=== PATIENT | male | born 1960 | race Caucasian/White ===

== ENCOUNTER 2016-07-30 13:53 | Inpatient (IN) | payer MEDICAID, MEDICARE ==
[2016-07-30 14:25] VITALS: BMI 25.1
--- NOTE | 2016-07-30 16:57 | RAD ---
PROCEDURE: Left Foot Radiographs. HISTORY: r/o osteo COMPARISON: Left foot radiographs performed 02/02/16 FINDINGS: BONES: Irregularity of the proximal 5th phalanx worrisome for acute fracture. The remainder the visualized osseous structures appear intact. JOINTS: No dislocation. SOFT TISSUES: Soft tissue swelling. No evidence of radiopaque foreign body. OTHER FINDINGS: None. IMPRESSION: Soft tissue swelling. Irregularity of the proximal 5th phalanx worrisome for acute fracture. This finding is new since prior study. Correlate with physical exam. Please note that MRI without and with IV contrast is most sensitive in detection of acute osteomyelitis.
--- NOTE | 2016-07-30 17:21 | RAD ---
PROCEDURE: Radiographs of the left tibia and fibula. HISTORY: r/o osteo COMPARISON: None available. TECHNIQUE: Frontal and lateral views obtained. FINDINGS: BONES: Mild fragmentation about the medial malleolus, presumed chronic ; suggest clinical correlation and dedicated cross-sectional imaging if indicated. The remainder the visualized osseous structures appear intact. JOINT SPACES: No dislocation. OTHER FINDINGS: Soft tissue swelling. No evidence of radiopaque foreign body. IMPRESSION: Soft tissue swelling. Mild fragmentation about the medial malleolus, presumed chronic ; suggest clinical correlation and dedicated cross-sectional imaging if indicated.
[2016-07-30 18:09] LABS: BASO # 0.1 K/uL (0.0-0.2); BASO % 1.3 % (0.0-2.0); EOS # 0.1 K/uL (0.0-0.7); EOS % 1.6 % (0.0-4.0); LYMPH # 1.9 K/uL (1.0-4.3); LYMPH % 20.7 % (20.0-40.0); MEAN CELL VOLUME 87.1 fL (80.0-94.0); MEAN CORPUSCULAR HEMOGLOBIN 27.7 pg (27.0-31.0); MEAN CORPUSCULAR HGB CONC 31.8 g/dL (33.0-37.0); MEAN PLATELET VOLUME 8.1 fL (7.2-11.7); MONO # 0.7 K/uL (0.0-0.8); MONO % 7.1 % (0.0-10.0); NRBC % 0.1 % (0.0-2.0); RED CELL DISTRIBUTION WIDTH 16.9 % (11.5-14.5); WHITE BLOOD COUNT 9.3 K/uL (4.8-10.8)
[2016-07-30 18:19] LABS: CHLORIDE 103 mmol/L (98-107); SODIUM 137 mmol/L (132-148)
--- NOTE | 2016-07-30 18:19 | C.PDOC ---
History Of Present Illness <Michelle Currie - Last Filed: 07/30/16 23:28> <Dar Villa DO - Last Filed: 08/02/16 07:41> 55 y/o male pmhx chronic venous ulcers secondary to diabetes complains of pain to left foot x1 week with left leg, arm and scrotal swelling. Pt denies trauma to foot. Denies chest pain, SOB, fever, cough, dysuria, hematuria or any other complaints. (Daisy FAIRDar) <Michelle Currie - Last Filed: 07/30/16 23:28> History Per: Patient History/Exam Limitations: no limitations Onset/Duration Of Symptoms: Days Current Symptoms Are (Timing): Still Present Severity: Moderate Location: Left lower extremity and scrotum Recent travel outside of the [place]: No <Dar Villa DO - Last Filed: 08/02/16 07:41> Chief Complaint (Nursing): Lower Extremity Problem/Injury Past Medical History Reviewed: Historical Data, Nursing Documentation, Vital Signs - Medical History PMH: Depression, Diabetes, HTN Family History: States: Unknown Family Hx - Social History Hx Tobacco Use: No Hx Alcohol Use: No Hx Substance Use: No - Immunization History Hx Tetanus Toxoid Vaccination: No Hx Influenza Vaccination: No Hx Pneumococcal Vaccination: No <Dra Villa DO - Last Filed: 08/02/16 07:41> Vital Signs: Last Vital Signs Temp 99 F 08/02/16 05:10 Pulse 91 H 08/02/16 05:10 Resp 18 08/02/16 05:10 BP 185/100 H 08/02/16 05:10 Pulse Ox 100 08/02/16 05:10 - [facility] Procedures AMPUTATION THROUGH FOOT (06/07/14) EXCIS DEBRIDE OF WOUND, INFECT, OR BURN (07/26/14) FLUOROSCOPY OF SUPERIOR VENA CAVA, GUIDANCE (02/02/16) FREE SKIN GRAFT NEC (07/26/14) INSERTION OF INFUSION DEV INTO SUP VENA CAVA, PERC APPROACH (02/02/16) LOC EXC LES METATAR/TAR (06/07/14) OTHER MYECTOMY (07/07/14) REMOVAL OF INFUSION DEV FROM GREAT VESSEL, SOFT WATER MECHANIC APPROACH (02/02/16) VENOUS CATHETERIZATION NEC (06/07/14) Review Of Systems Except As Marked, All Systems Reviewed And Found Negative. Constitutional: Negative for: Fever, Chills Cardiovascular: Negative for: Chest Pain Respiratory: Negative for: Cough, Shortness of Breath Genitourinary: Positive for: Scrotal Pain (and swelling). Negative for: Dysuria , Hematuria Musculoskeletal: Positive for: Other (left lower extremity pain and swelling) <Daisy FAIRDar La Filed: 08/02/16 07:41> Physical Exam - Physical Exam Appears: Non-toxic, No Acute Distress Skin: Warm, Dry, No Rash Head: Atraumatic, Normacephalic Chest: Symmetrical Cardiovascular: Rhythm Regular, No Murmur Respiratory: Normal Breath Sounds, No Rales, No Rhonchi, No Wheezing Gastrointestinal/Abdominal: Normal Exam, Soft, No Tenderness Male Genital: Scrotal Swelling (scrotal edema and swelling, nontender), Other ( no penile lesions) Extremity: Normal ROM, Capillary Refill (<2 seconds), Swelling (left upper extremity), Other (Left lower extremity edema, ulcer to anterior aspect, no discharge. Chronic changes to left foot with mild erythema and warmth. Right foot transmetatarsal amputation) Pulses: Left Dorsalis Pedis: Normal, Right Dorsalis Pedis: Normal Neurological/Psych: Oriented x3, Normal Speech <Daisy FARIDar La Filed: 08/02/16 07:41> ED Course And Treatment - Laboratory Results Result Diagrams: 07/30/16 18:05 07/30/16 18:05 ECG: Interpreted By Me, Viewed By Me Pulse Ox Interpretation: Normal - Radiology CXR: Interpreted by Me, Viewed By Me CXR Interpretation: Yes: Cardiomegaly, Other (picc in place, mild vasc congestion). No: Fracture, Pnemothorax <Michelle Currie - Last Filed: 07/30/16 23:28> - Laboratory Results Result Diagrams: 08/01/16 09:25 08/01/16 09:25 O2 Sat by Pulse Oximetry: 98 (room air) Pulse Ox Interpretation: Normal <Daisy FAIRDar La Filed: 08/02/16 07:41> Medical Decision Making <Michelle Currie - Last Filed: 07/30/16 23:28> <Daisy FAIRDar Last Filed: 08/02/16 07:41> Medical Decision Making: Plan: * labs * venous doppler LLE * XR left foot and tibia/fibula (Dar Villa DO) Disposition Discussed With Dr.: Rich Michael Comment: accepted the pt on his service and took over the care at 11;28pm Doctor Will See Patient In The: Hospital Counseled Patient/Family Regarding: Studies Performed, Diagnosis - Disposition Disposition Time: 19:00 - POA Present On Arrival: Poor Glycemic Control <Michelle Currie - Last Filed: 07/30/16 23:28> <Dar Villa DO - Last Filed: 08/02/16 07:41> - Disposition Disposition: HOSPITALIZED Condition: FAIR - Clinical Impression Clinical Impression: HTN (hypertension), Diabetic foot ulcer, Diabetes mellitus, Anasarca <Michelle Currie - Last Filed: 07/30/16 23:28> - Scribe Statement The provider has reviewed the documentation as recorded by the Scribe <Dar Villa DO - Last Filed: 08/02/16 07:41> - Scribe Statement Santo Lin (Dar Villa DO) Provider Attestation: All medical record entries made by the Scribe were at my direction and personally dictated by me. I have reviewed the chart and agree that the record accurately reflects my personal performance of the history, physical exam, medical decision making, and the department course for this patient. I have also personally directed, reviewed, and agree with the discharge instructions and disposition. (Dar Villa DO) Decision To Admit - Pt Status Changed To: Hospital Disposition Of: Inpatient - Admit Certification Admit to Inpatient:: After my assessment, the patient will require hospitalization for at least two midnights. This is because of the severity of symptoms shown, intensity of services needed, and/or the medical risk in this patient being treated as an outpatient. - InPatient: Physician Admission Certification: I certify that this patient requires 2 or more midnights of care for the following reason:: After my assessment, the patient will require hospitalization for at least two midnights. This is because of the severity of symptoms shown, intensity of services needed, and/or the medical risk in this patient being treated as an outpatient. - . Bed Request Type: Regular Admitting Physician: Rich Michael <Michelle Currie - Last Filed: 07/30/16 23:28> <Dar Villa DO - Last Filed: 08/02/16 07:41> - . Patient Diagnosis: HTN (hypertension), Diabetic foot ulcer, Diabetes mellitus, Anasarca
[2016-07-30 18:20] LABS: POTASSIUM 4.1 mmol/L (3.6-5.2)
[2016-07-30 18:22] LABS: ALB/GLOB RATIO 0.8 (1.0-2.1); ALKALINE PHOSPHATASE 94 U/L (38-126); ALT/SGPT 30 U/L (21-72); AST/SGOT 25 U/L (17-59); BILIRUBIN,TOTAL 0.4 mg/dL (0.2-1.3); BLOOD UREA NITROGEN 29 mg/dL (9-20); CALCIUM 8.2 mg/dl (8.6-10.4); CARBON DIOXIDE 30 mmol/L (22-30); GFR AFRICAN-AMERICAN > 60; GLUCOSE,RANDOM 254 mg/dL (75-110); TOTAL PROTEIN 5.5 g/dL (6.3-8.3)
[2016-07-30] MEDS ORDERED: Iohexol 350mg/ml 100 ML ONE (21:05)
--- NOTE | 2016-07-30 22:49 | CT ---
EXAM: CT Chest With Intravenous Contrast CLINICAL HISTORY: 55 years old, male; Condition or disease; Intestinal condition; Other: Edema; Other: Enlarge testicle; Additional info: Swelling/edema right side TECHNIQUE: Axial computed tomography images of the chest with intravenous contrast. This CT exam was performed using one or more of the following dose reduction techniques: automated exposure control, adjustment of the mA and/or kV according to patient size, and/or use of iterative reconstruction technique. Coronal and sagittal reformatted images were created and reviewed. CONTRAST: 100 mL of omnipaque 350 administered intravenously. COMPARISON: There are no prior studies for comparison. FINDINGS: Lungs: Trachea and main bronchi are patent.There are moderately large bilateral pleural effusions. There is compressive atelectasis bilaterally. There is patchy airspace disease at the lung bases. Pleural space: See above. Heart: unremarkable Mediastinum: Esophagus is not optimally evaluated. There is shotty mediastinal and hilar nodes. Thyroid: Thyroid is only partially imaged. Bones/joints: Bony structures are osteopenic.There are degenerative changes in the osseus structures. There are multiple old left rib fractures. There is a compression fracture at T10. There is a compression fracture at L2. Soft tissues: There is body wall edema Vasculature: The heart is mildly enlarged. There is a small pericardial effusion. There is no aneurysm or dissection. There are vascular calcifications. Pulmonary vessels are unremarkable. There is iatrogenic venous air. Lymph nodes: See above. Upper abdomen: Refer to the report for abdominal findings IMPRESSION: Moderately large bilateral pleural effusions with compressive atelectasis and minimal patchy airspace disease at the lung bases; mild cardiomegaly with small pericardial effusion; atherosclerotic disease; compression fractures T10 and L2; anasarca EXAM: CT Abdomen and Pelvis With Intravenous Contrast CLINICAL HISTORY: 55 years old, male; Condition or disease; Intestinal condition; Other: Edema; Other: Enlarge testicle; Additional info: Swelling/edema right side TECHNIQUE: Axial computed tomography images of the abdomen and pelvis with intravenous contrast. This CT exam was performed using one or more of the following dose reduction techniques: automated exposure control, adjustment of the mA and/or kV according to patient size, and/or use of iterative reconstruction technique. Coronal and sagittal reformatted images were created and reviewed. CONTRAST: 100 mL of omnipaque 350 administered intravenously. EXAM DATE/TIME: 07/30/2016 8:23 PM COMPARISON: There are no prior studies for comparison. FINDINGS: Lower thorax: Refer to prior report for chest findings ABDOMEN: Liver: There is fatty infiltration of the liver. The liver is mildly enlarged. Liver is heterogeneous. Gallbladder and bile ducts: Gallbladder is partially distended. There is pericholecystic fluid. Common bile duct is unremarkable. Pancreas: Pancreas is mildly atrophic. Spleen: unremarkable Adrenals: There is bilateral adrenal thickening left greater than right. Kidneys and ureters: Kidneys and ureters are unremarkable. Stomach and bowel: There is a small hiatal hernia. Stomach is partially distended. Rotation is normal. Small bowel is mildly distended. There is no obstruction. Terminal ileum is unremarkable. Appendix is unremarkable. Colon is incompletely distended which limits evaluation. There is a small fecal bolus in the rectum. Appendix: See stomach and bowel PELVIS: Bladder: Bladder is partially distended. Reproductive: Seminal vesicles and prostate are unremarkable. There are large bilateral hydroceles. ABDOMEN and PELVIS: Intraperitoneal space: There is no free air. Bones/joints: There are compression fractures at T10 and L2. There is mild compression deformity of T11 and T12. Soft tissues: There is body wall edema. Vasculature: There are vascular calcifications. Lymph nodes: There are shotty nodes in both groins. There is no pathologic adenopathy. IMPRESSION: Enlarged fatty liver, no acute solid visceral or bowel abnormality; large bilateral hydroceles; anasarca; compression fractures
[2016-07-31] MEDS ORDERED: Pneumococcal 23-Valent Vaccine IM ONE (04:23)
[2016-07-31] MEDS: (Novolin R) Insulin Human Regular 100 units/ml vial SC SCH ×4 (08:30→22:00)
[2016-07-31] MEDS ORDERED: (Novolog) Insulin Aspart, Recombinant 100 u/ml 10 ml vial SC SCH (10:00)
[2016-07-31] MEDS ORDERED: HYDROCHLOROTHIAZIDE PO SCH (10:00)
[2016-07-31] MEDS ORDERED: LISINOPRIL PO SCH (10:00)
[2016-07-31] MEDS: (Lantus) Insulin Glargine, Recombinant SC SCH (10:15)
--- NOTE | 2016-07-31 10:54 | CP.PCM.HP ---
History of Present Illness - History of Present Illness History of Present Illness: h/o leg blister and swelling, admitted with uncontrolled htn Present on Admission - Present on Admission Any Indicators Present on Admission: Yes Review of Systems - Cardiovascular Cardiovascular: Leg Edema - Genitourinary Additional comments: scrotal edema - Integumentary Integumentary: Sores Past Patient History - Infectious Disease Hx of Infectious Diseases: None - Tetanus Immunizations Tetanus Immunization: Unknown - Past Medical History & Family History Past Medical History?: Yes - Past Social History Smoking Status: Current Some Days Smoker - CARDIAC Hx Hypertension: Yes - PULMONARY Hx Respiratory Disorders: No - NEUROLOGICAL Hx Neurological Disorder: No - HEENT Hx HEENT Problems: No - RENAL Hx Chronic Kidney Disease: No - ENDOCRINE/METABOLIC Hx Endocrine Disorders: Yes Hx Diabetes Mellitus Type 2: Yes - HEMATOLOGICAL/ONCOLOGICAL Hx Blood Disorders: No - INTEGUMENTARY Hx Dermatological Problems: No Other/Comment: uLCERATION LATERAL ASPECT OF 5TH TOE - MUSCULOSKELETAL/RHEUMATOLOGICAL Hx Falls: No - GASTROINTESTINAL Hx Gastrointestinal Disorders: No - GENITOURINARY/GYNECOLOGICAL Hx Genitourinary Disorders: No - PSYCHIATRIC Hx Depression: Yes Hx Substance Use: No - SURGICAL HISTORY Hx Surgeries: Yes Hx Amputation: Yes (/TMA RIGHT FOOT) Hx Musculoskeletal Surgery: Yes (RIGHT KNEE A CHILD) Other/Comment: right knee surgery in 7th grade - ANESTHESIA Hx Anesthesia: Yes Hx Anesthesia Reactions: No Meds Allergies/Adverse Reactions: Allergies Allergy/AdvReac Type Severity Reaction Status Date / Time No Known Allergies Allergy Verified 07/30/16 14:23 Physical Exam - Constitutional Appears: Chronically Ill - Head Exam Head Exam: ATRAUMATIC, NORMOCEPHALIC - Eye Exam Eye Exam: Normal appearance - ENT Exam ENT Exam: Mucous Membranes Moist - Respiratory Exam Respiratory Exam: Decreased Breath Sounds - Cardiovascular Exam Cardiovascular Exam: +S1, +S2 - GI/Abdominal Exam GI & Abdominal Exam: Normal Bowel Sounds - Rectal Exam Rectal Exam: Deferred - Exam Exam: Scrotal Swelling - Extremities Exam Extremities exam: Positive for: pedal edema - Neurological Exam Neurological exam: Alert, Oriented x3 - Psychiatric Exam Psychiatric exam: Normal Affect, Normal Mood Results - Vital Signs Recent Vital Signs: Last Vital Signs Temp 98.3 F 07/31/16 07:30 Pulse 83 07/31/16 07:30 Resp 18 07/31/16 07:30 BP 151/81 H 07/31/16 10:17 Pulse Ox 99 07/31/16 07:30 - Labs Result Diagrams: 07/30/16 18:05 07/30/16 18:05 Labs: Laboratory Results - last 24 hr 07/31/16 06:46 POC Glucose (mg/dL) 344 H Assessment & Plan (1) Uncontrolled hypertension Status: Acute (2) Diabetes mellitus Status: Chronic (3) Scrotal edema Status: Acute (4) Edema Status: Acute
[2016-07-31] MEDS: Enoxaparin 40 mg Syringe SC SCH (12:03)
[2016-07-31] MEDS: (Novolog) Insulin Aspart, Recombinant 100 u/ml 10 ml vial SC SCH ×2 (12:22→17:37)
--- NOTE | 2016-07-31 12:33 | CP.PCM.PN ---
Subjective - Date & Time of Evaluation Date of Evaluation: 07/31/16 Time of Evaluation: 12:30 - Subjective Subjective: 55 year old male with scrotal and penile edema. Pt is diabetic and being treated for chf with dieuretics. A dependent edema suggests Elevate scrotum with towel,treat underlying causes of edema. [place] Objective - Vital Signs/Intake and Output Vital Signs (last 24 hours): Temp Pulse Resp BP Pulse Ox 98.3 F 83 18 151/81 H 99 07/31/16 07:30 07/31/16 07:30 07/31/16 07:30 07/31/16 10:17 07/31/16 07:30 - Medications Medications: Current Medications Amlodipine Besylate (Norvasc) 5 mg PO DAILY [facility] Last Admin: 07/31/16 10:17 Dose: Not Given Enoxaparin Sodium (Lovenox) 40 mg SC DAILY [facility] Last Admin: 07/31/16 12:03 Dose: 40 mg Furosemide (Lasix) 40 mg IVP Q12H [facility] Last Admin: 07/31/16 10:17 Dose: 40 mg Hydrochlorothiazide (Microzide) 12.5 mg PO DAILY [facility] Last Admin: 07/31/16 10:16 Dose: 12.5 mg Insulin Aspart (Novolog) 8 unit SC TIDAC [facility] Last Admin: 07/31/16 12:22 Dose: 8 unit Insulin Glargine (Lantus) 20 unit SC DAILY [facility] Last Admin: 07/31/16 10:15 Dose: 20 unit Insulin Human Regular (Novolin R) 0 unit SC [facility] PRN Reason: Protocol Last Admin: 07/31/16 12:23 Dose: 2 unit Lisinopril (Zestril) 10 mg PO DAILY [facility] Last Admin: 07/31/16 10:16 Dose: 10 mg
--- NOTE | 2016-07-31 14:49 | VASCLAB ---
PROCEDURE: Left Lower Extremity Venous Duplex Exam. HISTORY: DVT PRIORS: None. TECHNIQUE: Left common femoral, femoral, popliteal and posterior tibial, peroneal and great saphenous veins were evaluated. Flow was assessed with color Doppler, compressibility, assessment of phasic flow and augmentation response. Report prepared by VANITA Whitaker, RVT FINDINGS: LEFT: 1. Common Femoral Vein: 1.1. Compressibility - Fully compressible: Thrombus - None : Flow - Phasic: Augmentation -Normal: Reflux - None. 2. Femoral Vein: 2.1. Compressibility - Fully compressible: Thrombus - None: Flow - Phasic: Augmentation -Normal: Reflux - None. 3. Popliteal Vein: 3.1. Compressibility - Fully compressible: Thrombus - None: Flow - Phasic: Augmentation -Normal: Reflux - None. 4. Posterior Tibial Vein: 4.1. Compressibility - : Thrombus - : Flow - : Augmentation -: Reflux - . 5. Peroneal Vein: 5.1. Compressibility - : Thrombus - : Flow - : Augmentation -: Reflux - . 6. Great Saphenous Vein: 6.1. Compressibility - Fully compressible: Thrombus - None: Flow - Phasic: Augmentation - Normal: Reflux - Severe. OTHER FINDINGS: Due to swelling in the calf, the left peroneal and posterior tibial vein are not visualized. Severe valvular incompetence of the left greater saphenous vein. IMPRESSION: No evidence of deep or superficial vein thrombosis of the left lower extremity with excellent venous flow. Normal venous flow noted in the right common femoral vein.
--- NOTE | 2016-07-31 14:57 | US ---
HISTORY: scrotal swelling TECHNIQUE: Realtime sonography through the scrotum with color and doppler flow. COMPARISON: None Available. FINDINGS: RIGHT TESTICLE: Measures 4.2 x 2.9 x 2.8 cm. Homogeneous echotexture. Blood flow is demonstrated. RIGHT EPIDIDYMIS: Measures approximately 2.0 x 0.9 x 1.9 cm. LEFT TESTICLE: Measures 3.8 x 2.8 x 2.7 cm. Homogeneous echotexture. Blood flow is demonstrated. LEFT EPIDIDYMIS: Measures approximately 1.8 x 1.1 x 1.9 cm. HYDROCELE: Trace bilateral hydroceles. VARICOCELE: None. OTHER FINDINGS: Severe bilateral scrotal edema. IMPRESSION: Severe bilateral scrotal edema. Trace bilateral hydroceles.
--- NOTE | 2016-07-31 16:54 | CP.PCM.CON ---
History of Present Illness - History of Present Illness History of Present Illness: INFECTIOUS DISEASE CONSULTATION MARYLOU TERRAZAS MD, FACP 07/31/2016 6T 659-A CHART REVIEWED PT EXAMINED CASE DISCUSSED 55 YR OLD AAM PRESENT S WITH SCROTAL SWELLING X DAYS, CHRONIC HTN AND PENITENTIARY DM. BECAUSE OF THE EDEMA OF THE LEFT SIDE OF HIS EXTREMITIES HE DEVELOPED A BLISTER ON THE ANTERIOR TREVIZO OF HIS LEFT LEG. AN INFECTIOUS DISEASE CONSULTATION WAS REQUESTED FOR POSSIBLE AB MANAGEMENT. PMHX: DM WITH MICRO/MCRO ANGIOPATHIC CHANGES-NEWS ANALYST S/P RIGHT FOOT METAATARSAL AMPUTATION YRS AGO BY DR MARK BEVERLY. HTN UNDER THE CARE OF DR MAYDA Alejandro, AN OUTPATIENT. EDEMA UNDER THE CARE OF ATTENDINGS, UROLOGY ON THE CASE NO IV AB PRESENTLY ORDERED, TO OBVERSE AND MANAGE ACCORDINGLY. WOUND CARE MANAGEMENT UNDER WAY-PLEASE CALL ME IF NECESSARY. Review of Systems - Constitutional Constitutional: Fatigue - EENT Eyes: absent: As Per HPI, Blind Spots, Blurred Vision, Change in Vision, Decreased Night Vision, Diplopia, Discharge, Dry Eye, Exophthalmos, Floaters, Irritation, Itchy Eyes, Loss of Peripheral Vision, Pain, Photophobia, Requires Corrective Lenses, Sees Flashes, Spots in Vision, Tunnel Vision, Other Visual Disturbances, Loss of Vision, Other Nose/Mouth/Throat: absent: As Per HPI, Epistaxis, Nasal Congestion, Nasal Discharge, Nasal Obstruction, Nasal Trauma, Nose Pain, Post Nasal Drip, Sinus Pain, Sinus Pressure, Bleeding Gums, Change in Voice, Dental Pain, Dry Mouth, Dysphagia, Halitosis, Hoarsness, Lip Swelling, Mouth Lesions, Mouth Pain, Odynophagia, Sore Throat, Throat Swelling, Tongue Swelling, Facial Pain, Neck Pain, Neck Mass, Other - Cardiovascular Cardiovascular: Leg Edema, Leg Ulcers, Pedal Edema - Respiratory Respiratory: Chest Congestion - Gastrointestinal Gastrointestinal: absent: As Per HPI, Abdominal Pain, Belching, Bloating, Change in Bowel Habits, Change in Stool Character, Coffee Ground Emesis, Constipation, Cramping, Diarrhea, Dyspepsia, Dysphagia, Early Satiety, Excessive Flatus, Fecal Incontinence, Heartburn, Hematemesis, Hematochezia, Loose Stools, Melena, Nausea, Odynophagia, Temesmus, Vomiting, Other - Genitourinary Genitourinary: Change in Urinary Stream, Difficulty Urinating, Urinary Hesitance , Freq UTI - Musculoskeletal Musculoskeletal: Muscle Weakness - Integumentary Integumentary: New Lesions, Skin Pain - Neurological Neurological: Other - Psychiatric Psychiatric: Anxiety Past Patient History - Infectious Disease Hx of Infectious Diseases: None - Tetanus Immunizations Tetanus Immunization: Unknown - Past Medical History & Family History Past Medical History?: Yes - Past Social History Smoking Status: Current Some Days Smoker Alcohol: Occasional Domestic Violence: Negative - CARDIAC Hx Cardiac Disorders: Yes Hx Hypertension: Yes - PULMONARY Hx Respiratory Disorders: No - NEUROLOGICAL Hx Neurological Disorder: No - HEENT Hx HEENT Problems: No - RENAL Hx Chronic Kidney Disease: No - ENDOCRINE/METABOLIC Hx Endocrine Disorders: Yes Hx Diabetes Mellitus Type 2: Yes - HEMATOLOGICAL/ONCOLOGICAL Hx Blood Disorders: No - INTEGUMENTARY Hx Dermatological Problems: No Other/Comment: uLCERATION LATERAL ASPECT OF 5TH TOE - MUSCULOSKELETAL/RHEUMATOLOGICAL Hx Musculoskeletal Disorders: Yes Hx Falls: No Other/Comment: S/P TRANSMETATARSAL AMPUTATION RIGHT FOOT - GASTROINTESTINAL Hx Gastrointestinal Disorders: No - GENITOURINARY/GYNECOLOGICAL Hx Genitourinary Disorders: No Hx Urinary Tract Infection: Yes - PSYCHIATRIC Hx Psychophysiologic Disorder: Yes Hx Depression: Yes Hx Substance Use: No - SURGICAL HISTORY Hx Surgeries: Yes Hx Amputation: Yes (/TMA RIGHT FOOT) Hx Musculoskeletal Surgery: Yes (RIGHT KNEE A CHILD) Other/Comment: right knee surgery in 7th grade - ANESTHESIA Hx Anesthesia: Yes Hx Anesthesia Reactions: No Meds Allergies/Adverse Reactions: Allergies Allergy/AdvReac Type Severity Reaction Status Date / Time No Known Allergies Allergy Verified 07/30/16 14:23 - Medications Medications: Current Medications Amlodipine Besylate (Norvasc) 5 mg PO DAILY [facility] Last Admin: 07/31/16 10:17 Dose: Not Given Enoxaparin Sodium (Lovenox) 40 mg SC DAILY [facility] Last Admin: 07/31/16 12:03 Dose: 40 mg Furosemide (Lasix) 40 mg IVP Q12H [facility] Last Admin: 07/31/16 10:17 Dose: 40 mg Hydrochlorothiazide (Microzide) 12.5 mg PO DAILY [facility] Last Admin: 07/31/16 10:16 Dose: 12.5 mg Insulin Aspart (Novolog) 8 unit SC TIDAC [facility] Last Admin: 07/31/16 12:22 Dose: 8 unit Insulin Glargine (Lantus) 20 unit SC DAILY [facility] Last Admin: 07/31/16 10:15 Dose: 20 unit Insulin Human Regular (Novolin R) 0 unit SC ACHS [facility] PRN Reason: Protocol Last Admin: 07/31/16 12:23 Dose: 2 unit Lisinopril (Zestril) 10 mg PO DAILY [facility] Last Admin: 07/31/16 10:16 Dose: 10 mg Physical Exam - Constitutional Appears: Non-toxic - Head Exam Head Exam: NORMAL INSPECTION - Eye Exam Eye Exam: Normal appearance - ENT Exam ENT Exam: Mucous Membranes Moist - Respiratory Exam Respiratory Exam: Decreased Breath Sounds, NORMAL BREATHING PATTERN - Cardiovascular Exam Cardiovascular Exam: REGULAR RHYTHM - GI/Abdominal Exam GI & Abdominal Exam: Mass, Normal Bowel Sounds - Rectal Exam Rectal Exam: Deferred - Exam Exam: Scrotal Swelling - Back Exam Back exam: absent: muscle spasm, tenderness - Neurological Exam Neurological exam: Alert, Oriented x3 - Skin Skin Exam: Warm Results - Vital Signs Recent Vital Signs: Last Vital Signs Temp 97.9 F 07/31/16 15:43 Pulse 84 07/31/16 15:43 Resp 18 07/31/16 15:43 BP 152/88 H 07/31/16 15:43 Pulse Ox 97 07/31/16 15:43 - Labs Result Diagrams: 07/30/16 18:05 07/30/16 18:05 Labs: Laboratory Results - last 24 hr 07/31/16 07/31/16 06:46 11:47 POC Glucose (mg/dL) 344 H 180 H Assessment & Plan (1) Scrotal edema Status: Acute Priority: Medium (2) Uncontrolled hypertension Status: Chronic (3) Edema Status: Acute Priority: Medium Comment: LEFT EXTREMITIES, ESPECIALLY LEFT LEG. (4) Osteomyelitis of ankle or foot, acute Status: Resolved (5) PVD (peripheral vascular disease) Status: Chronic Priority: Medium (6) Uncontrolled diabetes mellitus Status: Chronic Priority: High
[2016-07-31 17:30] LABS: HEMATOCRIT 37.3 % (35.0-51.0); MEAN CELL VOLUME 86.5 fL (80.0-94.0); MEAN CORPUSCULAR HEMOGLOBIN 27.8 pg (27.0-31.0); MEAN CORPUSCULAR HGB CONC 32.1 g/dL (33.0-37.0); MEAN PLATELET VOLUME 7.7 fL (7.2-11.7); RED CELL DISTRIBUTION WIDTH 16.7 % (11.5-14.5); WHITE BLOOD COUNT 7.6 K/uL (4.8-10.8)
[2016-07-31 17:42] LABS: CHLORIDE 104 mmol/L (98-107)
[2016-07-31 17:43] LABS: POTASSIUM 3.2 mmol/L (3.6-5.2); SODIUM 136 mmol/L (132-148)
[2016-07-31 17:45] LABS: ALKALINE PHOSPHATASE 79 U/L (38-126); AST/SGOT 24 U/L (17-59); BILIRUBIN,TOTAL 0.4 mg/dL (0.2-1.3); BLOOD UREA NITROGEN 24 mg/dL (9-20); CARBON DIOXIDE 31 mmol/L (22-30); GFR AFRICAN-AMERICAN > 60; TOTAL PROTEIN 4.9 g/dL (6.3-8.3)
[2016-07-31 17:46] LABS: ALB/GLOB RATIO 0.8 (1.0-2.1); ALT/SGPT 23 U/L (21-72); CALCIUM 8.1 mg/dl (8.6-10.4); GLUCOSE,RANDOM 67 mg/dL (75-110)
--- NOTE | 2016-07-31 22:28 | CP.PCM.PN ---
Subjective - Date & Time of Evaluation Date of Evaluation: 07/31/16 Time of Evaluation: 16:05 Objective - Vital Signs/Intake and Output Vital Signs (last 24 hours): Temp Pulse Resp BP Pulse Ox 97.9 F 84 18 140/85 97 07/31/16 15:43 07/31/16 15:43 07/31/16 15:43 07/31/16 21:58 07/31/16 15:43 Intake and Output: 07/31/16 08/01/16 18:59 06:59 Intake Total 450 Output Total 600 Balance -150 - Medications Medications: Current Medications Amlodipine Besylate (Norvasc) 5 mg PO DAILY [facility] Last Admin: 07/31/16 10:17 Dose: Not Given Enoxaparin Sodium (Lovenox) 40 mg SC DAILY [facility] Last Admin: 07/31/16 12:03 Dose: 40 mg Furosemide (Lasix) 40 mg IVP Q12H [facility] Last Admin: 07/31/16 21:58 Dose: 40 mg Hydrochlorothiazide (Microzide) 12.5 mg PO DAILY [facility] Last Admin: 07/31/16 10:16 Dose: 12.5 mg Insulin Aspart (Novolog) 8 unit SC TIDAC [facility] Last Admin: 07/31/16 17:37 Dose: 8 unit Insulin Glargine (Lantus) 20 unit SC DAILY [facility] Last Admin: 07/31/16 10:15 Dose: 20 unit Insulin Human Regular (Novolin R) 0 unit SC ACHS [facility] PRN Reason: Protocol Last Admin: 07/31/16 22:00 Dose: Not Given Lisinopril (Zestril) 10 mg PO DAILY [facility] Last Admin: 07/31/16 10:16 Dose: 10 mg - Labs Labs: 07/31/16 17:21 07/31/16 17:21
[2016-08-01] MEDS: (Novolog) Insulin Aspart, Recombinant 100 u/ml 10 ml vial SC SCH ×2 (08:30→12:30)
[2016-08-01] MEDS: (Novolin R) Insulin Human Regular 100 units/ml vial SC SCH ×4 (08:37→23:22)
[2016-08-01 09:31] LABS: BASO # 0.1 K/uL (0.0-0.2); BASO % 1.4 % (0.0-2.0); EOS # 0.1 K/uL (0.0-0.7); EOS % 1.8 % (0.0-4.0); HEMATOCRIT 39.4 % (35.0-51.0); LYMPH # 1.6 K/uL (1.0-4.3); LYMPH % 20.5 % (20.0-40.0); MEAN CELL VOLUME 86.1 fL (80.0-94.0); MEAN CORPUSCULAR HEMOGLOBIN 28.1 pg (27.0-31.0); MEAN CORPUSCULAR HGB CONC 32.7 g/dL (33.0-37.0); MEAN PLATELET VOLUME 7.4 fL (7.2-11.7); MONO # 0.7 K/uL (0.0-0.8); MONO % 8.5 % (0.0-10.0); RED CELL DISTRIBUTION WIDTH 16.3 % (11.5-14.5)
[2016-08-01 09:48] LABS: CHLORIDE 98 mmol/L (98-107); POTASSIUM 3.2 mmol/L (3.6-5.2); SODIUM 134 mmol/L (132-148)
[2016-08-01 09:51] LABS: BLOOD UREA NITROGEN 24 mg/dL (9-20); CARBON DIOXIDE 30 mmol/L (22-30); GFR AFRICAN-AMERICAN > 60
[2016-08-01 09:52] LABS: GLUCOSE,RANDOM 152 mg/dL (75-110)
[2016-08-01] MEDS: (Lantus) Insulin Glargine, Recombinant SC SCH (10:20)
[2016-08-01] MEDS: Enoxaparin 40 mg Syringe SC SCH (10:21)
--- NOTE | 2016-08-01 12:34 | CP.PCM.PN ---
<Isma Perez - Last Filed: 08/01/16 12:31> Subjective - Date & Time of Evaluation Date of Evaluation: 08/01/16 Time of Evaluation: 12:31 - Subjective Subjective: Cardiology Progress Note for Dr. Stevenson Pt seen and examined at bedside. Pt states he would like more food this morning. Otherwise, pt has no complaints at this time. No acute events overnight. Denies CP, SOB, N/V/D. Objective - Vital Signs/Intake and Output Vital Signs (last 24 hours): Temp Pulse Resp BP Pulse Ox 99.4 F 88 18 164/104 H 98 08/01/16 07:45 08/01/16 11:35 08/01/16 07:45 08/01/16 10:20 08/01/16 11:35 Intake and Output: 08/01/16 08/01/16 06:59 18:59 Intake Total 215 Output Total 1000 Balance -785 - Medications Medications: Current Medications Amlodipine Besylate (Norvasc) 10 mg PO DAILY [facility] Last Admin: 08/01/16 10:21 Dose: Not Given Enoxaparin Sodium (Lovenox) 40 mg SC DAILY [facility] Last Admin: 08/01/16 10:21 Dose: 40 mg Furosemide (Lasix) 40 mg IVP Q12H [facility] Last Admin: 08/01/16 10:20 Dose: 40 mg Hydrochlorothiazide (Microzide) 12.5 mg PO DAILY [facility] Last Admin: 08/01/16 10:21 Dose: 12.5 mg Insulin Aspart (Novolog) 8 unit SC TIDAC [facility] Last Admin: 08/01/16 08:30 Dose: Not Given Insulin Glargine (Lantus) 20 unit SC DAILY [facility] Last Admin: 08/01/16 10:20 Dose: 20 unit Insulin Human Regular (Novolin R) 0 unit SC [facility] PRN Reason: Protocol Last Admin: 08/01/16 08:37 Dose: Not Given Lisinopril (Zestril) 10 mg PO DAILY [facility] Last Admin: 08/01/16 10:21 Dose: 10 mg - Labs Labs: 08/01/16 09:25 08/01/16 09:25 - Constitutional Appears: Well, No Acute Distress - Head Exam Head Exam: ATRAUMATIC, NORMAL INSPECTION, NORMOCEPHALIC - ENT Exam ENT Exam: Mucous Membranes Moist, Normal Exam - Respiratory Exam Respiratory Exam: Clear to Ausculation Bilateral, NORMAL BREATHING PATTERN. absent: Rhonchi - Cardiovascular Exam Cardiovascular Exam: RRR, +S1, +S2 - GI/Abdominal Exam GI & Abdominal Exam: Soft, Normal Bowel Sounds. absent: Tenderness - Extremities Exam Extremities Exam: absent: Calf Tenderness Additional comments: +2 pitting edema to knees b/l - Neurological Exam Neurological Exam: Alert, Awake, Oriented x3 - Psychiatric Exam Psychiatric exam: Normal Affect, Normal Mood - Skin Skin Exam: Intact, Normal Color, Warm Assessment and Plan (1) CHF (congestive heart failure) Assessment & Plan: Continue diuresis Continue lisinopril Will continue to monitor for worsening of cardiac function No surgical intervention at this time Status: Acute <Armida Stevenson - Last Filed: 08/01/16 21:16> Objective - Vital Signs/Intake and Output Vital Signs (last 24 hours): Temp Pulse Resp BP Pulse Ox 98.2 F 90 20 148/90 94 L 08/01/16 17:30 08/01/16 17:30 08/01/16 17:30 08/01/16 17:30 08/01/16 17:30 Intake and Output: 08/01/16 08/02/16 18:59 06:59 Intake Total 400 Output Total 800 Balance -400 - Medications Medications: Current Medications Amlodipine Besylate (Norvasc) 5 mg PO DAILY [facility] Enoxaparin Sodium (Lovenox) 40 mg SC DAILY [facility] Last Admin: 08/01/16 10:21 Dose: 40 mg Furosemide (Lasix) 40 mg IVP Q12H [facility] Last Admin: 08/01/16 10:20 Dose: 40 mg Hydralazine HCl (Apresoline) 50 mg PO Q8 [facility] Insulin Glargine (Lantus) 10 unit SC DAILY [facility] Insulin Human Regular (Novolin R) 0 unit SC ACHS [facility] PRN Reason: Protocol Last Admin: 08/01/16 17:23 Dose: Not Given Isosorbide Dinitrate (Isordil) 10 mg PO BID [facility] Potassium Chloride (K-Dur 20 Meq Er Tab) 20 meq PO DAILY [facility] Last Admin: 08/01/16 17:52 Dose: 20 meq - Labs Labs: 08/01/16 09:25 08/01/16 09:25 Attending/Attestation - Attestation I have personally seen and examined this patient.: Yes I have fully participated in the care of the patient.: Yes I have reviewed all pertinent clinical information, including history, physical exam and plan: Yes Notes (Text): 08/01/16 21:14 Continue BP control coming down nicely no Bidil in pharmacy will use hydralazine with imdur with amlodipine ef 52 percent pt non compliant with meds will stary coreg as well if poor control
--- NOTE | 2016-08-01 16:12 | CP.PCM.PN ---
Subjective - Date & Time of Evaluation Date of Evaluation: 08/01/16 Time of Evaluation: 16:04 - Subjective Subjective: pt. still with edema, echo results pending probnp elevated suggesting heart failure, which would be a new problem Objective - Vital Signs/Intake and Output Vital Signs (last 24 hours): Temp Pulse Resp BP Pulse Ox 99.4 F 88 18 164/104 H 98 08/01/16 07:45 08/01/16 11:35 08/01/16 07:45 08/01/16 10:20 08/01/16 11:35 Intake and Output: 08/01/16 08/01/16 06:59 18:59 Intake Total 215 Output Total 1000 Balance -785 - Medications Medications: Current Medications Amlodipine Besylate (Norvasc) 10 mg PO DAILY [facility] Last Admin: 08/01/16 10:21 Dose: Not Given Enoxaparin Sodium (Lovenox) 40 mg SC DAILY [facility] Last Admin: 08/01/16 10:21 Dose: 40 mg Furosemide (Lasix) 40 mg IVP Q12H [facility] Last Admin: 08/01/16 10:20 Dose: 40 mg Hydralazine HCl (Apresoline) 50 mg PO Q8 [facility] Hydrochlorothiazide (Microzide) 12.5 mg PO DAILY [facility] Last Admin: 08/01/16 10:21 Dose: 12.5 mg Insulin Aspart (Novolog) 8 unit SC TIDAC [facility] Last Admin: 08/01/16 12:30 Dose: 8 unit Insulin Glargine (Lantus) 20 unit SC DAILY [facility] Last Admin: 08/01/16 10:20 Dose: 20 unit Insulin Human Regular (Novolin R) 0 unit SC ACHS [facility] PRN Reason: Protocol Last Admin: 08/01/16 12:30 Dose: 3 unit Lisinopril (Zestril) 10 mg PO DAILY [facility] Last Admin: 08/01/16 10:21 Dose: 10 mg Potassium Chloride (K-Dur 20 Meq Er Tab) 20 meq PO DAILY [facility] - Labs Labs: 08/01/16 09:25 08/01/16 09:25 - Constitutional Appears: Chronically Ill - Head Exam Head Exam: ATRAUMATIC, NORMOCEPHALIC - Eye Exam Eye Exam: Normal appearance - ENT Exam ENT Exam: Mucous Membranes Moist - Respiratory Exam Respiratory Exam: Decreased Breath Sounds - Cardiovascular Exam Cardiovascular Exam: +S1, +S2 - GI/Abdominal Exam GI & Abdominal Exam: Normal Bowel Sounds - Rectal Exam Rectal Exam: Deferred - Extremities Exam Extremities Exam: Pedal Edema - Neurological Exam Neurological Exam: Alert, Awake - Psychiatric Exam Psychiatric exam: Normal Affect, Normal Mood - Skin Skin Exam: Intact Assessment and Plan (1) Uncontrolled hypertension Status: Chronic (2) Diabetes mellitus Status: Chronic (3) Scrotal edema Status: Acute (4) Edema Status: Acute
[2016-08-01] MEDS ORDERED: hydrALAZINE 12.5 mg Tab PO SCH (16:15)
[2016-08-01] MEDS ORDERED: Dextrose 50% SYRINGE Inj (50 ml) IV STA (17:10)
[2016-08-01] MEDS: Potassium Chloride 20 mEq ER Tab PO SCH (17:52)
--- NOTE | 2016-08-01 21:13 | CP.PCM.CON ---
Past Patient History - Infectious Disease Hx of Infectious Diseases: None - Tetanus Immunizations Tetanus Immunization: Unknown - Past Medical History & Family History Past Medical History?: Yes - Past Social History Smoking Status: Current Some Days Smoker Alcohol: Occasional Domestic Violence: Negative - CARDIAC Hx Hypertension: Yes - PULMONARY Hx Respiratory Disorders: No - NEUROLOGICAL Hx Neurological Disorder: No - HEENT Hx HEENT Problems: No - RENAL Hx Chronic Kidney Disease: No - ENDOCRINE/METABOLIC Hx Endocrine Disorders: Yes Hx Diabetes Mellitus Type 2: Yes - HEMATOLOGICAL/ONCOLOGICAL Hx Blood Disorders: No - INTEGUMENTARY Hx Dermatological Problems: No Other/Comment: uLCERATION LATERAL ASPECT OF 5TH TOE - MUSCULOSKELETAL/RHEUMATOLOGICAL Hx Musculoskeletal Disorders: Yes Hx Falls: No Other/Comment: S/P TRANSMETATARSAL AMPUTATION RIGHT FOOT - GASTROINTESTINAL Hx Gastrointestinal Disorders: No - GENITOURINARY/GYNECOLOGICAL Hx Genitourinary Disorders: No Hx Urinary Tract Infection: Yes - PSYCHIATRIC Hx Psychophysiologic Disorder: Yes Hx Depression: Yes Hx Substance Use: No - SURGICAL HISTORY Hx Surgeries: Yes Hx Amputation: Yes (/TMA RIGHT FOOT) Hx Musculoskeletal Surgery: Yes (RIGHT KNEE A CHILD) Other/Comment: right knee surgery in 7th grade - ANESTHESIA Hx Anesthesia: Yes Hx Anesthesia Reactions: No Meds Allergies/Adverse Reactions: Allergies Allergy/AdvReac Type Severity Reaction Status Date / Time No Known Allergies Allergy Verified 07/30/16 14:23 - Medications Medications: Current Medications Amlodipine Besylate (Norvasc) 5 mg PO DAILY [facility] Enoxaparin Sodium (Lovenox) 40 mg SC DAILY [facility] Last Admin: 08/01/16 10:21 Dose: 40 mg Furosemide (Lasix) 40 mg IVP Q12H [facility] Last Admin: 08/01/16 10:20 Dose: 40 mg Hydralazine HCl (Apresoline) 50 mg PO Q8 [facility] Insulin Glargine (Lantus) 10 unit SC DAILY [facility] Insulin Human Regular (Novolin R) 0 unit SC ACHS [facility] PRN Reason: Protocol Last Admin: 08/01/16 17:23 Dose: Not Given Isosorbide Dinitrate (Isordil) 10 mg PO BID [facility] Potassium Chloride (K-Dur 20 Meq Er Tab) 20 meq PO DAILY [facility] Last Admin: 08/01/16 17:52 Dose: 20 meq Results - Vital Signs Recent Vital Signs: Last Vital Signs Temp 98.2 F 08/01/16 17:30 Pulse 90 08/01/16 17:30 Resp 20 08/01/16 17:30 BP 148/90 08/01/16 17:30 Pulse Ox 94 L 08/01/16 17:30 - Labs Result Diagrams: 08/01/16 09:25 08/01/16 09:25 Labs: Laboratory Results - last 24 hr 07/31/16 08/01/16 08/01/16 20:56 06:40 09:25 WBC 8.0 RBC 4.58 Hgb 12.9 Hct 39.4 MCV 86.1 MCH 28.1 MCHC 32.7 L RDW 16.3 H Plt Count 250 MPV 7.4 Neut % (Auto) 67.8 Lymph % (Auto) 20.5 [place] % (Auto) 8.5 Eos % (Auto) 1.8 Baso % (Auto) 1.4 Neut # 5.4 Lymph # 1.6 [place] # 0.7 Eos # 0.1 Baso # 0.1 ESR 70 H Sodium Potassium Chloride Carbon Dioxide Anion Gap BUN Creatinine Est GFR ( Amer) Est GFR (Non-Af Amer) POC Glucose (mg/dL) 83 109 Random Glucose Calcium 08/01/16 08/01/16 08/01/16 09:25 11:46 16:32 WBC RBC Hgb Hct MCV MCH MCHC RDW Plt Count MPV Neut % (Auto) Lymph % (Auto) [place] % (Auto) Eos % (Auto) Baso % (Auto) Neut # Lymph # [place] # Eos # Baso # ESR Sodium 134 Potassium 3.2 L Chloride 98 Carbon Dioxide 30 Anion Gap 9 L BUN 24 H Creatinine 1.2 Est GFR ( Amer) > 60 Est GFR (Non-Af Amer) > 60 POC Glucose (mg/dL) 207 H 59 L Random Glucose 152 H Calcium 8.0 L 08/01/16 08/01/16 08/01/16 16:43 17:08 17:41 WBC RBC Hgb Hct MCV MCH MCHC RDW Plt Count MPV Neut % (Auto) Lymph % (Auto) [place] % (Auto) Eos % (Auto) Baso % (Auto) Neut # Lymph # [place] # Eos # Baso # ESR Sodium Potassium Chloride Carbon Dioxide Anion Gap BUN Creatinine Est GFR ( Amer) Est GFR (Non-Af Amer) POC Glucose (mg/dL) 57 L 63 L 209 H Random Glucose Calcium
[2016-08-02] MEDS: (Novolin R) Insulin Human Regular 100 units/ml vial SC SCH ×4 (08:19→22:11)
[2016-08-02] MEDS ORDERED: (Lantus) Insulin Glargine, Recombinant SC SCH ×3 (10:00→22:00)
[2016-08-02] MEDS: Enoxaparin 40 mg Syringe SC SCH (10:14)
[2016-08-02] MEDS: Potassium Chloride 20 mEq ER Tab PO SCH (10:15)
[2016-08-02 11:42] LABS: BASO % 0.3 % (0.0-2.0); EOS # 0.1 K/uL (0.0-0.7); EOS % 1.9 % (0.0-4.0); HEMATOCRIT 39.7 % (35.0-51.0); LYMPH # 1.5 K/uL (1.0-4.3); LYMPH % 20.1 % (20.0-40.0); MEAN CELL VOLUME 86.1 fL (80.0-94.0); MEAN CORPUSCULAR HEMOGLOBIN 27.9 pg (27.0-31.0); MEAN CORPUSCULAR HGB CONC 32.4 g/dL (33.0-37.0); MEAN PLATELET VOLUME 7.8 fL (7.2-11.7); MONO # 0.6 K/uL (0.0-0.8); MONO % 8.8 % (0.0-10.0); NRBC % 0.1 % (0.0-2.0); RED CELL DISTRIBUTION WIDTH 16.3 % (11.5-14.5); WHITE BLOOD COUNT 7.4 K/uL (4.8-10.8)
[2016-08-02 11:55] LABS: CHLORIDE 96 mmol/L (98-107); SODIUM 133 mmol/L (132-148)
[2016-08-02 11:56] LABS: POTASSIUM 3.3 mmol/L (3.6-5.2)
[2016-08-02 11:58] LABS: GFR AFRICAN-AMERICAN > 60
[2016-08-02 11:59] LABS: BLOOD UREA NITROGEN 23 mg/dL (9-20); CALCIUM 8.2 mg/dl (8.6-10.4); CARBON DIOXIDE 31 mmol/L (22-30); GLUCOSE,RANDOM 303 mg/dL (75-110); MAGNESIUM 1.6 mg/dL (1.6-2.3)
--- NOTE | 2016-08-02 12:05 | CP.PCM.CON ---
History of Present Illness - History of Present Illness History of Present Illness: 55 y/o male patient PMH of DM, HtN, Depression seen and evaluated at bedside with attending Dr. Chiu after request for podiatry consult. Patient was resting comfortably in bed and in NAD. AAOx3. Patient came in [facility] ED on for Left lower extremity pain and non-healing wound on the anterior aspect of LLE. Patient states that he has mild pain at wound site. LLE dressing was intact, clean and dry. Patient denies any symptoms of N/V/F/SOB/Chest pain. Past Patient History - Infectious Disease Hx of Infectious Diseases: None - Tetanus Immunizations Tetanus Immunization: Unknown - Past Medical History & Family History Past Medical History?: Yes - Past Social History Smoking Status: Current Some Days Smoker Alcohol: Occasional Domestic Violence: Negative - CARDIAC Hx Hypertension: Yes - PULMONARY Hx Respiratory Disorders: No - NEUROLOGICAL Hx Neurological Disorder: No - HEENT Hx HEENT Problems: No - RENAL Hx Chronic Kidney Disease: No - ENDOCRINE/METABOLIC Hx Endocrine Disorders: Yes Hx Diabetes Mellitus Type 2: Yes - HEMATOLOGICAL/ONCOLOGICAL Hx Blood Disorders: No - INTEGUMENTARY Hx Dermatological Problems: No Other/Comment: uLCERATION LATERAL ASPECT OF 5TH TOE - MUSCULOSKELETAL/RHEUMATOLOGICAL Hx Musculoskeletal Disorders: Yes Hx Falls: No Other/Comment: S/P TRANSMETATARSAL AMPUTATION RIGHT FOOT - GASTROINTESTINAL Hx Gastrointestinal Disorders: No - GENITOURINARY/GYNECOLOGICAL Hx Genitourinary Disorders: No Hx Urinary Tract Infection: Yes - PSYCHIATRIC Hx Depression: Yes Hx Substance Use: No - SURGICAL HISTORY Hx Surgeries: Yes Hx Amputation: Yes (/TMA RIGHT FOOT) Hx Musculoskeletal Surgery: Yes (RIGHT KNEE A CHILD) Other/Comment: right knee surgery in 7th grade - ANESTHESIA Hx Anesthesia: Yes Hx Anesthesia Reactions: No Meds Allergies/Adverse Reactions: Allergies Allergy/AdvReac Type Severity Reaction Status Date / Time No Known Allergies Allergy Verified 07/30/16 14:23 - Medications Medications: Current Medications Amlodipine Besylate (Norvasc) 5 mg PO DAILY [facility] Last Admin: 08/02/16 10:15 Dose: 5 mg Enoxaparin Sodium (Lovenox) 40 mg SC DAILY [facility] Last Admin: 08/02/16 10:14 Dose: 40 mg Furosemide (Lasix) 40 mg IVP Q12H [facility] Last Admin: 08/02/16 10:14 Dose: 40 mg Hydralazine HCl (Apresoline) 50 mg PO Q8 [facility] Last Admin: 08/02/16 05:17 Dose: 50 mg Insulin Glargine (Lantus) 10 unit SC DAILY [facility] Last Admin: 08/02/16 10:15 Dose: 10 unit Insulin Human Regular (Novolin R) 0 unit SC ACHS [facility] PRN Reason: Protocol Last Admin: 08/02/16 08:19 Dose: 4 unit Isosorbide Dinitrate (Isordil) 10 mg PO BID [facility] Last Admin: 08/02/16 10:15 Dose: 10 mg Potassium Chloride (K-Dur 20 Meq Er Tab) 20 meq PO DAILY [facility] Last Admin: 08/02/16 10:15 Dose: 20 meq Physical Exam - Constitutional Appears: Well, Non-toxic, No Acute Distress - Extremities Exam Additional comments: LLE focus exam Vascular: DP and PT palpable, CFT is less than 3 seconds, Pedal and LE edema noted, normal skin temp, Normal skin color Derm: Open wound noted to the anterior aspect of LLE ( 2.5 cm x 1.5 cm x 0.1cm) , wound base is mixture of fibrotic and granular, no signs of infection, no drainage, no tunneling, no sinus tract, no purulence, no erythema Ortho: mild tenderness at the wound site with palpation Neuro: diminished protective sensation and light touch - Neurological Exam Neurological exam: Alert, CN II-XII Intact, Oriented x3 - Psychiatric Exam Psychiatric exam: Normal Affect, Normal Mood Results - Vital Signs Recent Vital Signs: Last Vital Signs Temp 98.8 F 08/02/16 08:44 Pulse 97 H 08/02/16 08:44 Resp 20 08/02/16 08:44 BP 142/78 08/02/16 10:14 Pulse Ox 100 08/02/16 08:44 - Labs Result Diagrams: 08/02/16 11:27 08/02/16 11:27 Labs: Laboratory Results - last 24 hr 08/01/16 08/01/16 08/01/16 09:25 16:32 16:43 WBC RBC Hgb Hct MCV MCH MCHC RDW Plt Count MPV Neut % (Auto) Lymph % (Auto) [place] % (Auto) Eos % (Auto) Baso % (Auto) Neut # Lymph # [place] # Eos # Baso # ESR 70 H Sodium Potassium Chloride Creatinine Est GFR ( Amer) Est GFR (Non-Af Amer) POC Glucose (mg/dL) 59 L 57 L 08/01/16 08/01/16 08/01/16 17:08 17:41 21:37 WBC RBC Hgb Hct MCV MCH MCHC RDW Plt Count MPV Neut % (Auto) Lymph % (Auto) [place] % (Auto) Eos % (Auto) Baso % (Auto) Neut # Lymph # [place] # Eos # Baso # ESR Sodium Potassium Chloride Creatinine Est GFR ( Amer) Est GFR (Non-Af Amer) POC Glucose (mg/dL) 63 L 209 H 214 H 08/02/16 08/02/16 08/02/16 02:43 06:19 11:27 WBC 7.4 RBC 4.61 Hgb 12.9 Hct 39.7 MCV 86.1 MCH 27.9 MCHC 32.4 L RDW 16.3 H Plt Count 275 MPV 7.8 Neut % (Auto) 68.9 Lymph % (Auto) 20.1 [place] % (Auto) 8.8 Eos % (Auto) 1.9 Baso % (Auto) 0.3 Neut # 5.1 Lymph # 1.5 [place] # 0.6 Eos # 0.1 Baso # 0.0 ESR Sodium Potassium Chloride Creatinine Est GFR ( Amer) Est GFR (Non-Af Amer) POC Glucose (mg/dL) 196 H 281 H 08/02/16 08/02/16 11:27 11:56 WBC RBC Hgb Hct MCV MCH MCHC RDW Plt Count MPV Neut % (Auto) Lymph % (Auto) [place] % (Auto) Eos % (Auto) Baso % (Auto) Neut # Lymph # [place] # Eos # Baso # ESR Sodium 133 Potassium 3.3 L Chloride 96 L Creatinine 1.2 Est GFR ( Amer) > 60 Est GFR (Non-Af Amer) > 60 POC Glucose (mg/dL) 368 H Assessment & Plan - Assessment and Plan (Free Text) Assessment: 55 y/o male patient with LLE open wound secondary to vesnou stasis/DM Plan: Patient seen and evaluated at bedside with Dr. Chiu All the questions and concerns were addressed LLE dressing was applied with Xeroform and DSD Pt will have Venous duplex exam Patient will be discharge home if Duplex exam came back with Negative Patient is stable to be discharge home from podiatry stand point Patient will f/u with Dr. Chiu upon D/C
--- NOTE | 2016-08-02 15:16 | VASCLAB ---
PROCEDURE: Lower Extremity Venous Duplex Exam. HISTORY: Bilateral lower extremity swelling PRIORS: None. TECHNIQUE: Bilateral common femoral, femoral, popliteal and posterior tibial, peroneal and great saphenous veins were evaluated. Flow was assessed with color Doppler, compressibility, assessment of phasic flow and augmentation response. Report prepared by Julio Cesar Cash, VANITA, RVT FINDINGS: RIGHT: 1. Common Femoral Vein: 1.1. Compressibility - Fully compressible: Thrombus - None : Flow - Phasic: Augmentation -Normal: Reflux - None. 2. Femoral Vein: 2.1. Compressibility - Fully compressible: Thrombus - None : Flow - Phasic: Augmentation -Normal: Reflux - None. 3. Popliteal Vein: 3.1. Compressibility - Fully compressible: Thrombus - None : Flow - Phasic: Augmentation -Normal: Reflux - None. 4. Posterior Tibial Vein: 4.1. Compressibility - Fully compressible: Thrombus - None: Flow - Phasic: Augmentation -Normal: Reflux - None. 5. Peroneal Vein: 5.1. Compressibility - Fully compressible: Thrombus - None: Flow - Phasic: Augmentation -Normal: Reflux - None. 6. Great Saphenous Vein: 6.1. Compressibility - Fully compressible: Thrombus - None: Flow - Phasic: Augmentation - Normal: Reflux - None. LEFT: 1. Common Femoral Vein: 1.1. Compressibility - Fully compressible: Thrombus - None: Flow - Phasic: Augmentation -Normal: Reflux - None. 2. Femoral Vein: 2.1. Compressibility - Fully compressible: Thrombus - None: Flow - Phasic: Augmentation -Normal: Reflux - None. 3. Popliteal Vein: 3.1. Compressibility - Fully compressible: Thrombus - None : Flow - Phasic: Augmentation -Normal: Reflux - None. 4. Posterior Tibial Vein: 4.1. Compressibility - Fully compressible: Thrombus - None: Flow - Phasic: Augmentation -Normal: Reflux - None. 5. Peroneal Vein: 5.1. Compressibility - Fully compressible: Thrombus - None: Flow - Phasic: Augmentation -Normal: Reflux - None. 6. Great Saphenous Vein: 6.1. Compressibility - Fully compressible: Thrombus - None: Flow - Phasic: Augmentation - Normal: Reflux - Severe. OTHER FINDINGS: Right: None significant. Left: Severe valvular incompetence of the left greater saphenous vein. IMPRESSION: Right: No evidence of deep or superficial vein thrombosis of the right lower extremity. Normal valve function noted of the right side. Left: No evidence of deep or superficial vein thrombosis of the left lower extremity.
--- NOTE | 2016-08-02 19:17 | CP.PCM.PN ---
Subjective - Date & Time of Evaluation Date of Evaluation: 08/02/16 Time of Evaluation: 19:12 - Subjective Subjective: pt seen with mild, improvement in swelling echo results still pending will try to switch to po meds in am and observe for stability Objective - Vital Signs/Intake and Output Vital Signs (last 24 hours): Temp Pulse Resp BP Pulse Ox 98.2 F 98 H 20 154/89 H 95 08/02/16 16:00 08/02/16 16:00 08/02/16 16:00 08/02/16 16:00 08/02/16 16:00 Intake and Output: 08/02/16 08/03/16 18:59 06:59 Intake Total 600 Balance 600 - Medications Medications: Current Medications Amlodipine Besylate (Norvasc) 5 mg PO DAILY [facility] Last Admin: 08/02/16 10:15 Dose: 5 mg Carvedilol (Coreg) 12.5 mg PO BID [facility] Enoxaparin Sodium (Lovenox) 40 mg SC DAILY [facility] Last Admin: 08/02/16 10:14 Dose: 40 mg Furosemide (Lasix) 40 mg IVP Q12H [facility] Last Admin: 08/02/16 10:14 Dose: 40 mg Hydralazine HCl (Apresoline) 50 mg PO Q8 [facility] Last Admin: 08/02/16 13:22 Dose: 50 mg Insulin Glargine (Lantus) 10 unit SC DAILY [facility] Last Admin: 08/02/16 10:15 Dose: 10 unit Insulin Human Regular (Novolin R) 0 unit SC ACHS [facility] PRN Reason: Protocol Last Admin: 08/02/16 17:30 Dose: 4 unit Isosorbide Dinitrate (Isordil) 10 mg PO BID [facility] Last Admin: 08/02/16 17:49 Dose: 10 mg Potassium Chloride (K-Dur 20 Meq Er Tab) 20 meq PO DAILY [facility] Last Admin: 08/02/16 10:15 Dose: 20 meq Spironolactone (Aldactone) 50 mg PO DAILY [facility] - Labs Labs: 08/02/16 11:27 08/02/16 11:27 - Constitutional Appears: Chronically Ill - Head Exam Head Exam: ATRAUMATIC, NORMOCEPHALIC - Eye Exam Eye Exam: Normal appearance - ENT Exam ENT Exam: Mucous Membranes Moist - Respiratory Exam Respiratory Exam: Decreased Breath Sounds - Cardiovascular Exam Cardiovascular Exam: +S1, +S2 - GI/Abdominal Exam GI & Abdominal Exam: Normal Bowel Sounds - Rectal Exam Rectal Exam: Deferred - Exam Exam: Scrotal Swelling - Extremities Exam Extremities Exam: Pedal Edema - Neurological Exam Neurological Exam: Alert, Awake - Psychiatric Exam Psychiatric exam: Normal Affect, Normal Mood - Skin Skin Exam: Intact Assessment and Plan (1) Uncontrolled hypertension Status: Chronic (2) Diabetes mellitus Status: Chronic (3) Scrotal edema Status: Acute (4) Edema Status: Acute (5) 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
--- NOTE | 2016-08-02 21:53 | CARD ---
APPROVED REPORT EXAM: Two-dimensional and M-mode echocardiogram with Doppler and color Doppler. Other Information Quality : GoodRhythm : NSR INDICATION Dyspnea RISK FACTORS Hypertension Diabetes M-Mode DIMENSIONS RVDd2.54 (2.1-3.2cm)Left Atrium (MM)3.75 (2.5-4.0cm) IVSd1.80 (0.7-1.1cm)Aortic Root3.12 (2.2-3.7cm) LVDd4.80 (4.0-5.6cm)Aortic Cusp Exc.2.11 (1.5-2.0cm) PWd1.76 (0.7-1.1cm)FS (%) 27 % LVDs3.51 (2.0-3.8cm)LVEF (%)52 (>50%) Aortic Valve AoV Peak Cqnvstfn249.9cm/Agnes Peak GR.7mmHg Mitral Valve MV E Yzrvjfxv18.0cm/sMV A Dpratkur93.1cm/sE/A ratio1.2 TDI E/Lateral E'0.0E/Medial E'0.0 Tricuspid Valve TR Peak Zkopsrdq973er/sTR Peak Gr.[id number] LEFT VENTRICLE The left ventricle is normal size. There is mild concentric left ventricular hypertrophy. Left ventricle systolic function is normal. The Ejection Fraction is 50-55%. There is normal LV segmental wall motion. The left ventricular diastolic function is normal. RIGHT VENTRICLE The right ventricle is normal size. There is normal right ventricular wall thickness. The right ventricular systolic function is normal. ATRIA The left atrium size is normal. The right atrium size is normal. The interatrial septum is intact with no evidence for an atrial septal defect. AORTIC VALVE The aortic valve is normal in structure. No aortic regurgitation is present. There is no aortic valvular stenosis. MITRAL VALVE The mitral valve is normal in structure. There is no evidence of mitral valve prolapse. There is no mitral valve stenosis. Mitral regurgitation is trace. TRICUSPID VALVE The tricuspid valve is normal in structure. There is mild tricuspid regurgitation. Right ventricular systolic pressure is estimated at 30-40 mmHg. There is mild pulmonary hypertension. PULMONIC VALVE The pulmonic valve is not well visualized. There is mild pulmonic valvular regurgitation. GREAT VESSELS The aortic root is normal in size. PERICARDIAL EFFUSION There is a small loculated posterior pericardial effusion. <Conclusion> Left ventricle systolic function is normal. The Ejection Fraction is 50-55%. Hypertensive heart disease. No aortic regurgitation is present. Mitral regurgitation is trace. There is mild tricuspid regurgitation. There is mild pulmonary hypertension. There is mild pulmonic valvular regurgitation.
[2016-08-03] MEDS: (Novolin R) Insulin Human Regular 100 units/ml vial SC SCH ×3 (08:19→17:28)
[2016-08-03 08:22] LABS: BASO # 0.1 K/uL (0.0-0.2); BASO % 0.9 % (0.0-2.0); EOS # 0.2 K/uL (0.0-0.7); HEMATOCRIT 36.7 % (35.0-51.0); LYMPH # 1.8 K/uL (1.0-4.3); LYMPH % 23.3 % (20.0-40.0); MEAN CELL VOLUME 87.1 fL (80.0-94.0); MEAN CORPUSCULAR HGB CONC 32.1 g/dL (33.0-37.0); MEAN PLATELET VOLUME 7.7 fL (7.2-11.7); MONO # 0.6 K/uL (0.0-0.8); MONO % 8.2 % (0.0-10.0); NRBC % 0.1 % (0.0-2.0); RED CELL DISTRIBUTION WIDTH 16.1 % (11.5-14.5); WHITE BLOOD COUNT 7.9 K/uL (4.8-10.8)
[2016-08-03 08:28] VITALS: PULSE 78
[2016-08-03] MEDS: Potassium Chloride 20 mEq ER Tab PO SCH (10:03)
[2016-08-03] MEDS: Enoxaparin 40 mg Syringe SC SCH (10:03)
[2016-08-03 10:13] LABS: CHLORIDE 103 mmol/L (98-107); POTASSIUM 3.7 mmol/L (3.6-5.2); SODIUM 135 mmol/L (132-148)
[2016-08-03 10:16] LABS: BLOOD UREA NITROGEN 25 mg/dL (9-20); CARBON DIOXIDE 29 mmol/L (22-30); GFR AFRICAN-AMERICAN > 60; GLUCOSE,RANDOM 144 mg/dL (75-110)
[2016-08-03 10:17] LABS: CALCIUM 8.1 mg/dl (8.6-10.4)
--- NOTE | 2016-08-03 13:08 | CP.PCM.PN ---
Subjective - Date & Time of Evaluation Date of Evaluation: 08/03/16 Time of Evaluation: 12:30 - Subjective Subjective: Pt seen and examined today, states feels better , denies any chest pain, sob , dizziness, palpitations oob ambulates with physical therapy seen by manager hair and cleared for discharge home Objective - Vital Signs/Intake and Output Vital Signs (last 24 hours): Temp Pulse Resp BP Pulse Ox 98.4 F 78 17 140/84 97 08/03/16 07:10 08/03/16 07:10 08/03/16 07:10 08/03/16 10:03 08/03/16 07:10 Intake and Output: 08/03/16 08/03/16 06:59 18:59 Intake Total 200 Output Total 200 Balance 0 - Medications Medications: Current Medications Amlodipine Besylate (Norvasc) 5 mg PO DAILY [facility] Last Admin: 08/03/16 10:02 Dose: 5 mg Carvedilol (Coreg) 12.5 mg PO BID [facility] Last Admin: 08/03/16 10:03 Dose: 12.5 mg Enoxaparin Sodium (Lovenox) 40 mg SC DAILY [facility] Last Admin: 08/03/16 10:03 Dose: 40 mg Furosemide (Lasix) 40 mg IVP Q12H [facility] Last Admin: 08/03/16 10:07 Dose: Not Given Hydralazine HCl (Apresoline) 50 mg PO Q8 [facility] Last Admin: 08/03/16 06:52 Dose: 50 mg Insulin Glargine (Lantus) 15 unit SC HS [facility] Last Admin: 08/02/16 22:11 Dose: 15 units Insulin Human Regular (Novolin R) 0 unit SC [facility] PRN Reason: Protocol Last Admin: 08/03/16 12:30 Dose: 4 unit Isosorbide Dinitrate (Isordil) 10 mg PO BID [facility] Last Admin: 08/03/16 10:02 Dose: 10 mg Potassium Chloride (K-Dur 20 Meq Er Tab) 20 meq PO DAILY [facility] Last Admin: 08/03/16 10:03 Dose: 20 meq Spironolactone (Aldactone) 50 mg PO DAILY [facility] Last Admin: 08/03/16 10:02 Dose: 50 mg - Labs Labs: 08/03/16 07:57 08/03/16 07:57 Assessment and Plan - Assessment and Plan (Free Text) Assessment: 55 yr old male admitted for pain to left foot x1 week with left leg, arm and scrotal swelling./HTN/anasarca venous duplex- negative echo- Normal LV function , EF 50-55% seen by manager hair , cleared for discharge home from podiatry stand point D/W Dr. Locke , stable for discharge home today and f/u with and Dr. Lyon office in 1 week Discharge plan discussed with patient who understands and agrees with plan ALL RX OBTAINED AND GIVEN TO THE PATIENT Pt instructed to returns to ED if symptoms returns
--- NOTE | 2016-08-03 16:41 | PCM.HF ---
Heart Failure Core Measure - Heart Failure Ejection Fraction: 40 % or Greater MEDARDO Inhibitor Prescribed: Yes Beta-David Prescribed: Carvedilol Angiotensin II Receptor David Prescribed: No Contraindication/Reason for not providing: on medardo AnticoagulationTherapy for Atrial Fibrillation/Atrialflutter: No Contraindication/Reason for not providing: no hx of chf Aldosterone Antagonist Prescribed: Yes Hydralazine Nitrate Prescribed: Yes Implantable Cardioverter Defibrillator Therapy: No Contraindication/Reason for not providing: ef>50 Cardiac Resynchronization Therapy Prescribed: No Contraindication/Reason for not providing: ef>45 - Follow up Will be discharged to: Home Follow Up Date (must be within 7 days from discharge): 08/08/16 Follow Up Time: 09:00
[2016-08-03 17:16] VITALS: BP 125/62; RESP 20; TEMP 98.9; O2SAT 99
--- NOTE | 2016-08-03 17:54 | CP.PCM.PN ---
Subjective - Date & Time of Evaluation Date of Evaluation: 08/03/16 Time of Evaluation: 08:05 Objective - Vital Signs/Intake and Output Vital Signs (last 24 hours): Temp Pulse Resp BP Pulse Ox 98.9 F 78 20 125/62 99 08/03/16 15:30 08/03/16 15:30 08/03/16 15:30 08/03/16 15:30 08/03/16 15:30 Intake and Output: 08/03/16 08/03/16 06:59 18:59 Intake Total 200 400 Output Total 200 Balance 0 400 - Medications Medications: Current Medications Amlodipine Besylate (Norvasc) 5 mg PO DAILY [facility] Last Admin: 08/03/16 10:02 Dose: 5 mg Carvedilol (Coreg) 12.5 mg PO BID [facility] Last Admin: 08/03/16 10:03 Dose: 12.5 mg Enoxaparin Sodium (Lovenox) 40 mg SC DAILY [facility] Last Admin: 08/03/16 10:03 Dose: 40 mg Furosemide (Lasix) 40 mg IVP Q12H [facility] Last Admin: 08/03/16 10:07 Dose: Not Given Hydralazine HCl (Apresoline) 50 mg PO Q8 [facility] Last Admin: 08/03/16 14:29 Dose: 50 mg Insulin Glargine (Lantus) 15 unit SC HS [facility] Last Admin: 08/02/16 22:11 Dose: 15 units Insulin Human Regular (Novolin R) 0 unit SC ACHS [facility] PRN Reason: Protocol Last Admin: 08/03/16 17:28 Dose: 8 unit Isosorbide Dinitrate (Isordil) 10 mg PO BID [facility] Last Admin: 08/03/16 10:02 Dose: 10 mg Potassium Chloride (K-Dur 20 Meq Er Tab) 20 meq PO DAILY [facility] Last Admin: 08/03/16 10:03 Dose: 20 meq Spironolactone (Aldactone) 50 mg PO DAILY [facility] Last Admin: 08/03/16 10:02 Dose: 50 mg - Labs Labs: 08/03/16 07:57 08/03/16 07:57
--- NOTE | 2016-08-04 18:32 | CON ---
DATE: 07/31/2016 TIME: Approximately 12:30 p.m. CHIEF COMPLAINT: Scrotal and penile swelling. HISTORY OF PRESENT ILLNESS: The patient was admitted with congestive heart failure. He is a known d iabetic with having had multiple amputations due to peripheral vascular disease. He has noted signif icant scrotal and penile swelling for the last several days. Denies any history of trauma or venerea l diseases. REVIEW OF SYSTEMS: RESPIRATORY: The patient is not complaining of shortness of breath. CARDIAC: The patient has a history of peripheral edema, as well as scrotal edema. GASTROINTESTINAL: The patient has no change in bowel complaints. GENITOURINARY: The patient is having no difficulty in voiding. He is noting scrotal and penile chase a. He is uncircumcised, but is not having any difficulty in voiding. SOCIAL AND FAMILY HISTORY: The patient is a nonsmoker and does not drink. PHYSICAL EXAMINATION: VITAL SIGNS: Within normal limits. HEENT: Within normal limits. NECK: Supple. There are no bruits, nodes, or masses. CHEST: Clear bilaterally. There are no rales or rhonchi. There is some basilar decrease in breath sounds. HEART: Normal sinus rhythm. There is no cardiomegaly. There is no murmur. ABDOMEN: Soft, nontender. There are no masses or organomegaly, no inguinal hernias. GENITOURINARY: Scrotum: There is significant peripheral edema in the scrotal wall and in the penis and foreskin consistent with congestive heart failure. EXTREMITIES: The patient has a right partial foot amputation. He has some peripheral edema. IMPRESSION: Scrotal and penile edema secondary to generalized edema, congestive failure. SUGGEST: I suggest elevating the scrotum and penis with a towel at all times. Treatment of the gene ral underlying cause of the peripheral edema should improve his scrotal edema as well. No further th erapy at this time. Curtis Major MD cc: [id number] TT: 08/04/2016 18:31:58 Confirmation # [id number] Dictation # [id number] mn
--- NOTE | 2016-08-11 11:48 | CP.PCM.DIS ---
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 Hospital Course - Lab Results Lab Results: Most Recent Lab Values WBC 7.9 K/uL (4.8-10.8) 08/03/16 07:57 RBC 4.21 Mil/uL (4.40-5.90) L 08/03/16 07:57 Hgb 11.8 g/dL (12.0-18.0) L 08/03/16 07:57 Hct 36.7 % (35.0-51.0) 08/03/16 07:57 MCV 87.1 fL (80.0-94.0) 08/03/16 07:57 MCH 28.0 pg (27.0-31.0) 08/03/16 07:57 MCHC 32.1 g/dL (33.0-37.0) L 08/03/16 07:57 RDW 16.1 % (11.5-14.5) H 08/03/16 07:57 Plt Count 224 K/uL (130-400) 08/03/16 07:57 MPV 7.7 fL (7.2-11.7) 08/03/16 07:57 Neut % (Auto) 65.6 % (50.0-75.0) 08/03/16 07:57 Lymph % (Auto) 23.3 % (20.0-40.0) 08/03/16 07:57 [place] % (Auto) 8.2 % (0.0-10.0) 08/03/16 07:57 Eos % (Auto) 2.0 % (0.0-4.0) 08/03/16 07:57 Baso % (Auto) 0.9 % (0.0-2.0) 08/03/16 07:57 Neut # 5.2 K/uL (1.8-7.0) 08/03/16 07:57 Lymph # 1.8 K/uL (1.0-4.3) 08/03/16 07:57 Montgomery # 0.6 K/uL (0.0-0.8) 08/03/16 07:57 Eos # 0.2 K/uL (0.0-0.7) 08/03/16 07:57 Baso # 0.1 K/uL (0.0-0.2) 08/03/16 07:57 ESR 70 mm/hr (0-15) H 08/01/16 09:25 Sodium 135 mmol/L (132-148) 08/03/16 07:57 Potassium 3.7 mmol/L (3.6-5.2) 08/03/16 07:57 Chloride 103 mmol/L (98-107) 08/03/16 07:57 Carbon Dioxide 29 mmol/L (22-30) 08/03/16 07:57 Anion Gap 7 (10-20) L 08/03/16 07:57 BUN 25 mg/dL (9-20) H 08/03/16 07:57 Creatinine 1.3 MG/DL (0.8-1.5) 08/03/16 07:57 Est GFR ( Amer) > 60 08/03/16 07:57 Est GFR (Non-Af Amer) 57 08/03/16 07:57 POC Glucose (mg/dL) 362 mg/dL (65-110) H 08/03/16 16:48 Random Glucose 144 mg/dL (75-110) H 08/03/16 07:57 Calcium 8.1 mg/dl (8.6-10.4) L 08/03/16 07:57 Magnesium 1.6 mg/dL (1.6-2.3) 08/02/16 11:27 Total Bilirubin 0.4 mg/dL (0.2-1.3) 07/31/16 17:21 AST 24 U/L (17-59) 07/31/16 17:21 ALT 23 U/L (21-72) 07/31/16 17:21 Alkaline Phosphatase 79 U/L (38-126) 07/31/16 17:21 NT-Pro-B Natriuret Pep 8450 pg/mL (0-900) H 08/03/16 07:57 Total Protein 4.9 g/dL (6.3-8.3) L 07/31/16 17:21 Albumin 2.1 g/dL (3.5-5.0) L 07/31/16 17:21 Globulin 2.8 gm/dL (2.2-3.9) 07/31/16 17:21 Albumin/Globulin Ratio 0.8 (1.0-2.1) L 07/31/16 17:21 Discharge Exam - Head Exam Head Exam: ATRAUMATIC, NORMOCEPHALIC - Eye Exam Eye Exam: Normal appearance Pupil Exam: NORMAL ACCOMODATION - ENT Exam ENT Exam: Mucous Membranes Moist - Respiratory Exam Respiratory Exam: Decreased Breath Sounds - Cardiovascular Exam Cardiovascular Exam: +S1, +S2 - GI/Abdominal Exam GI & Abdominal Exam: Normal Bowel Sounds - Rectal Exam Rectal Exam: Deferred - Neurological Exam Neurological exam: Alert, Oriented x3 - Psychiatric Exam Psychiatric exam: Normal Affect, Normal Mood - Skin Skin Exam: Warm Discharge Plan - Discharge Medications Prescriptions: Spironolactone [Aldactone] 50 mg PO DAILY #30 tab hydrALAZINE [Apresoline] 50 mg PO Q8 #90 tab Carvedilol [Coreg] 12.5 mg PO BID #60 tab Isosorbide Dinitrate [Isordil] 10 mg PO BID #60 tab Furosemide [Lasix] 40 mg PO DAILY #30 tablet amLODIPine [Norvasc] 5 mg PO DAILY #30 tab - Follow Up Plan Condition: FAIR Disposition: HOME/ ROUTINE Instructions: Isosorbide Dinitrate (By mouth), Spironolactone (By mouth), Furosemide (By mouth), Hydralazine (By mouth), Amlodipine (By mouth), Carvedilol (By mouth), Heart Failure (DC), Heart Healthy Diet (DC), Diabetic Foot Care (DC), Diabetes Mellitus Type 2 in Adults (DC), Hypertension (DC), Hypertension (GEN), Edema (DC), Sepsis (DC), Sepsis (GEN), Heart Failure (GEN), Pacemaker (DC), Pacemaker (GEN), Pulmonary Edema (DC), Pulmonary Edema (GEN), Ascites (DC), Ascites (GEN), Cellulitis (DC), Cellulitis (GEN) Additional Instructions: F/u with Dr. Lyon office in 1 week f/u with Dr. Gonzalze office in 1 week continue medication as per Med. Rec. Referrals: Benjamín Gonzalez MD, PhD [Staff Provider] -
== END 2016-08-03 17:00 | disposition home or self-care (01) | DRG 293 ==
LOC: C.ER 13:53 → C.9E 23:28 → C.6T 07-31 00:11
PROVIDERS: ADMIT Internal Medicine Pulmonary Disease; ATTEND Internal Medicine Pulmonary Disease
DX: I11.0 Hypertensive heart disease with heart failure (principal); E10.51 Type 1 diabetes mellitus with diabetic peripheral angiopathy without gangrene; I42.9 Cardiomyopathy, unspecified; E10.621 Type 1 diabetes mellitus with foot ulcer; N48.89 Other specified disorders of penis; E10.65 Type 1 diabetes mellitus with hyperglycemia; L97.529 Non-pressure chronic ulcer of other part of left foot with unspecified severity; I50.9 Heart failure, unspecified; F17.210 Nicotine dependence, cigarettes, uncomplicated; I87.8 Other specified disorders of veins; Z91.14 Patient's other noncompliance with medication regimen; Z79.4 Long term (current) use of insulin; Z87.440 Personal history of urinary (tract) infections; N50.89 Other specified disorders of the male genital organs

== ENCOUNTER 2017-01-18 15:25 | Emergency (ER) | payer MEDICARE ==
[2017-01-18 15:26] VITALS: BMI 25.1
[2017-01-18 15:30] VITALS: PULSE 92; RESP 18
[2017-01-18] MEDS ORDERED: Sodium Chloride 0.9% 1,000 ML IV ONE ×2 (16:02→17:29)
--- NOTE | 2017-01-18 16:14 | C.PDOC ---
History Of Present Illness 56 y/o male presents to ED with c/o lightheadedness and multiple episodes of nausea and vomiting, after "a night of drinking with my friends". Denies chest pain, SOB, palpitations, or diarrhea. Patient reports history of DM, and notes ran out of insulin 2-3 months ago, states "I can't afford it." Time Seen by Provider: 01/18/17 15:46 Chief Complaint (Nursing): Abdominal Pain History Per: Patient History/Exam Limitations: no limitations Onset/Duration Of Symptoms: Days Current Symptoms Are (Timing): Still Present Location Of Pain/Discomfort: Epigastric Radiation Of Pain To:: None Quality Of Discomfort: "Pain" Associated Symptoms: Nausea, Vomiting. denies: Fever, Diarrhea Recent travel outside of the [place]: No Past Medical History Reviewed: Historical Data, Nursing Documentation, Vital Signs Vital Signs: Last Vital Signs Temp 98.7 F 01/18/17 19:42 Pulse 92 H 01/18/17 19:42 Resp 18 01/18/17 19:42 BP 144/97 H 01/18/17 19:42 Pulse Ox 98 01/18/17 19:42 - Medical History PMH: Depression, Diabetes, HTN - [facility] Procedures AMPUTATION THROUGH FOOT (06/07/14) EXCIS DEBRIDE OF WOUND, INFECT, OR BURN (07/26/14) FLUOROSCOPY OF SUPERIOR VENA CAVA, GUIDANCE (02/02/16) FREE SKIN GRAFT NEC (07/26/14) INSERTION OF INFUSION DEV INTO SUP VENA CAVA, PERC APPROACH (02/02/16) LOC EXC LES METATAR/TAR (06/07/14) OTHER MYECTOMY (07/07/14) REMOVAL OF INFUSION DEV FROM GREAT VESSEL, SHAREPOINT APPLICATION DEVELOPER APPROACH (02/02/16) VENOUS CATHETERIZATION NEC (06/07/14) Family History: States: Unknown Family Hx - Social History Hx Tobacco Use: No Hx Alcohol Use: Yes Hx Substance Use: No - Immunization History Hx Tetanus Toxoid Vaccination: No Hx Influenza Vaccination: No Hx Pneumococcal Vaccination: No Review Of Systems Except As Marked, All Systems Reviewed And Found Negative. Constitutional: Negative for: Fever, Chills Cardiovascular: Negative for: Chest Pain, Palpitations Respiratory: Negative for: Cough, Shortness of Breath Gastrointestinal: Positive for: Nausea, Vomiting, Abdominal Pain Skin: Negative for: Rash Neurological: Negative for: Headache, Dizziness Physical Exam - Physical Exam Appears: Non-toxic, No Acute Distress, Other (comfortable) Skin: Normal Color, Warm, Dry Head: Atraumatic, Normacephalic Oral Mucosa: Moist Chest: Symmetrical Cardiovascular: Rhythm Regular Respiratory: Normal Breath Sounds, No Rales, No Rhonchi, No Wheezing Gastrointestinal/Abdominal: Soft, Tenderness (mild, epigastric), No Guarding, No Rebound Back: Normal Inspection Extremity: Normal ROM, Capillary Refill (< 2 sec.) Neurological/Psych: Oriented x3, Normal Speech, Normal Cognition ED Course And Treatment - Laboratory Results Result Diagrams: 01/18/17 17:00 01/18/17 17:00 O2 Sat by Pulse Oximetry: 99 (RA) Pulse Ox Interpretation: Normal Progress Note: Fluids, Bentyl, labs ordered and reviewed. Disposition Counseled Patient/Family Regarding: Studies Performed, Diagnosis, Need For Followup, Rx Given - Disposition Referrals: Benjamín Gonzalez MD, PhD [Staff Provider] - Disposition: HOME/ ROUTINE Disposition Time: 20:15 Condition: STABLE Prescriptions: Famotidine [Pepcid] 20 mg PO BID PRN #15 tab PRN Reason: abdominal Ondansetron [Zofran Odt] 4 mg PO Q8 PRN #15 odt PRN Reason: Nausea/Vomiting Instructions: Acute Nausea and Vomiting (ED) Forms: [facility] (Russian) Print Language: FRISIAN - POA Present On Arrival: None - Clinical Impression Clinical Impression: Nausea, Vomiting, Abdominal pain - Scribe Statement The provider has reviewed the documentation as recorded by the Scribe SM All medical record entries made by the Scribe were at my direction and personally dictated by me. I have reviewed the chart and agree that the record accurately reflects my personal performance of the history, physical exam, medical decision making, and the department course for this patient. I have also personally directed, reviewed, and agree with the discharge instructions and disposition.
[2017-01-18] MEDS ORDERED: Sodium Chloride 0.9% 0 ML ONE (16:59)
[2017-01-18 17:17] LABS: BASO # 0.1 K/uL (0.0-0.2); BASO % 1.3 % (0.0-2.0); EOS # 0.1 K/uL (0.0-0.7); EOS % 0.7 % (0.0-4.0); HEMATOCRIT 37.7 % (35.0-51.0); LYMPH # 1.6 K/uL (1.0-4.3); MEAN CELL VOLUME 90.9 fL (80.0-94.0); MEAN PLATELET VOLUME 7.3 fL (7.2-11.7); MONO # 0.6 K/uL (0.0-0.8); MONO % 6.8 % (0.0-10.0); NRBC % 0.1 % (0.0-2.0); RED CELL DISTRIBUTION WIDTH 13.9 % (11.5-14.5); WHITE BLOOD COUNT 8.6 K/uL (4.8-10.8)
[2017-01-18 17:27] LABS: ALKALINE PHOSPHATASE 78 U/L (38-126); ALT/SGPT 40 U/L (21-72); AST/SGOT 23 U/L (17-59); BILIRUBIN,TOTAL 0.7 mg/dL (0.2-1.3); BLOOD UREA NITROGEN 24 mg/dL (9-20); CALCIUM 8.2 mg/dl (8.6-10.4); CARBON DIOXIDE 27 mmol/L (22-30); CHLORIDE 103 mmol/L (98-107); GFR AFRICAN-AMERICAN > 60; GLUCOSE,RANDOM 301 mg/dL (75-110); POTASSIUM 3.8 mmol/L (3.6-5.2); SODIUM 136 mmol/L (132-148); TOTAL PROTEIN 6.2 g/dL (6.3-8.3)
[2017-01-18] MEDS ORDERED: (Novolin R) Insulin Human Regular 100 units/ml vial IV STA (17:30)
[2017-01-18] MEDS ORDERED: Sodium Chloride 0.9% 1,000 ML ONE ×2 (17:41→18:52)
[2017-01-18] MEDS ORDERED: (Novolin R) Insulin Human Regular 100 units/ml vial ONE (17:41)
[2017-01-18 19:43] VITALS: BP 144/97; TEMP 98.7
[2017-01-18 20:22] VITALS: O2SAT 99
--- NOTE | 2017-01-21 17:52 | CARD ---
APPROVED REPORT EKG Measurement Heart [id number] <Conclusion> Normal sinus rhythm Possible Left atrial enlargement Left ventricular hypertrophy with repolarization abnormality consider infero- lateral ischemia Abnormal ECG
== END 2017-01-18 20:25 | disposition home or self-care (01) ==
LOC: C.ER 15:25
DX: R10.9 Unspecified abdominal pain (principal); R11.2 Nausea with vomiting, unspecified; I10 Essential (primary) hypertension; E11.9 Type 2 diabetes mellitus without complications; Z79.4 Long term (current) use of insulin
CPT/HCPCS: 80053; 82009; 82948; 83690; 85025; 96361; 96374; 99285; J7040